=== PATIENT | female | born 1960 | race Caucasian/White ===

== ENCOUNTER → 2017-02-22 | Day surgery (SDC) | payer BC, OTHER ==
[~2017-02-22] MED LIST: LIDOCAINE 1% PF 2 ML VIAL. ID; MIDAZOLAM HCL/PF 2 MG/2 ML VIAL. IV; PROPOFOL 20 ML IV; fentaNYL PF VIAL 100 MCG/2 ML VIAL IV
[2017-02-22] MEDS: IV RINGERS,LACTATED 1000ML 1,000 ML IV (11:52)
== END | disposition home or self-care (01) ==
LOC: SURG 11:17
DX: K21.0 Gastro-esophageal reflux disease with esophagitis (principal); K29.50 Unspecified chronic gastritis without bleeding; M19.91 Primary osteoarthritis, unspecified site; Z98.890 Other specified postprocedural states; Z87.39 Personal history of other diseases of the musculoskeletal system and connective tissue; Z87.891 Personal history of nicotine dependence; Z88.2 Allergy status to sulfonamides
CPT/HCPCS: 43239; 88305; J2704

== ENCOUNTER → 2017-06-27 | Outpatient (CLI) | payer BC, OTHER ==
[2017-06-27] MEDS: GADOBUTROL 7.5 MMOL/7.5 ML VIAL IV (10:57)
== END | disposition home or self-care (01) ==
LOC: KCIC MRI 09:50
DX: K76.0 Fatty (change of) liver, not elsewhere classified (principal); N28.1 Cyst of kidney, acquired
CPT/HCPCS: 74183; A9585

== ENCOUNTER → 2017-08-03 | Day surgery (SDC) | payer BC, OTHER ==
[~2017-08-03] MED LIST changes: +DEXAMETHASONE SOD PHOS 20 MG/5 ML VIAL.; +ESMOLOL 100 MG/10 ML VIAL. IV; +GLYCOPYRROLATE 1 MG/5 ML VIAL.; +LIDOCAINE 1% PF 5 ML VIAL.; -MIDAZOLAM HCL/PF 2 MG/2 ML VIAL. IV; +MORPHINE SULFATE 4 MG/ML DISP.SYRIN. IV; +NEOSTIGMINE METHYLSULFATE 5 MG/5 ML SYRINGE.; +ONDANSETRON PF 4 MG/2 ML VIAL.; +ONDANSETRON PF 4 MG/2 ML VIAL. IV; +PROCHLORPERAZINE 10 MG/2 ML VIAL. IV; +ROCURONIUM 50 MG/5 ML VIAL.; +SEVOFLURANE 61 TO 120 MINUTES. IH; +SURGICEL HEMOSTAT 4X8 EACH.; +ceFAZolin 2GM PREMIX 2 GM/50 ML BAG IV; +fentaNYL PF VIAL 250 MCG/5 ML VIAL; +oxyCODONE/APAP 5/325 1 TAB TABLET PO
[2017-08-03] MEDS: IV RINGERS,LACTATED 1000ML 1,000 ML IV (07:54)
[2017-08-03] MEDS: BUPIVACAINE-EPI 0.25%-1:200000 50 ML VIAL. (09:02)
[2017-08-03] MEDS: fentaNYL PF VIAL 100 MCG/2 ML VIAL IV (10:14)
[2017-08-03] MEDS: oxyCODONE/APAP 5/325 1 TAB TABLET PO (10:38)
== END | disposition home or self-care (01) ==
LOC: SURG 07:20
DX: K81.1 Chronic cholecystitis (principal); K76.0 Fatty (change of) liver, not elsewhere classified; K21.9 Gastro-esophageal reflux disease without esophagitis; Z79.899 Other long term (current) drug therapy; Z98.890 Other specified postprocedural states; Z87.891 Personal history of nicotine dependence; Z88.1 Allergy status to other antibiotic agents; Z88.8 Allergy status to other drugs, medicaments and biological substances; M19.90 Unspecified osteoarthritis, unspecified site; Z83.79 Family history of other diseases of the digestive system; Z82.49 Family history of ischemic heart disease and other diseases of the circulatory system
CPT/HCPCS: 47001; 88304; 88307; 88313; A7015; J0690; J1100; J2405; J2704; J2710; J3010; J3490; J7030; J7120

== ENCOUNTER → 2020-03-02 | Outpatient (CLI) | payer BC, OTHER ==
[2017-08-03 10:32] VITALS: BP 148/84
[~2020-03-02] MED LIST changes: -DEXAMETHASONE SOD PHOS 20 MG/5 ML VIAL.; -ESMOLOL 100 MG/10 ML VIAL. IV; +FAMO-63 PO; -GLYCOPYRROLATE 1 MG/5 ML VIAL.; +IOHEXOL 180 MG/ML 10 ML VIAL. ONE; -LIDOCAINE 1% PF 2 ML VIAL. ID; -LIDOCAINE 1% PF 5 ML VIAL.; +MAGN400C PO; -MORPHINE SULFATE 4 MG/ML DISP.SYRIN. IV; -NEOSTIGMINE METHYLSULFATE 5 MG/5 ML SYRINGE.; -ONDANSETRON PF 4 MG/2 ML VIAL.; -ONDANSETRON PF 4 MG/2 ML VIAL. IV; +OXYC1TAB15 PO; +PANT40TA77 PO; -PROCHLORPERAZINE 10 MG/2 ML VIAL. IV; -PROPOFOL 20 ML IV; -ROCURONIUM 50 MG/5 ML VIAL.; -SEVOFLURANE 61 TO 120 MINUTES. IH; -SURGICEL HEMOSTAT 4X8 EACH.; -ceFAZolin 2GM PREMIX 2 GM/50 ML BAG IV; -fentaNYL PF VIAL 100 MCG/2 ML VIAL IV; -fentaNYL PF VIAL 250 MCG/5 ML VIAL; +methylPREDNISolone ACETATE 40 MG/ML VIAL. ONE; +methylPREDNISolone ACETATE 80 MG/ML VIAL. ONE; -oxyCODONE/APAP 5/325 1 TAB TABLET PO
--- NOTE | 2020-03-02 12:37 | PDOC1 ---
INITIAL PAIN CONSULT DATE OF SERVICE: DOS: DATE: 03/02/20 TIME: 12:32 CHIEF COMPLAINT: Chief Complaint: Low back and bilateral lower extremity pain HISTORY OF PRESENT ILLNESS: 59-year-old female presents history of pain in the low back and bilateral lower extremities for about 3 years gradually increasing not result of any specific injury or accident that she is aware of but getting worse over time. Patient reports it is increasing across the low back slightly more on the left than the right but present bilaterally occasional radiation to the posterior gluteus posterior thighs as well. Patient reports changes during the day with activity worse with walking standing changing positions better with sitting or laying down generally does not awaken from sleep at night is not effective bowel bladder control does not affect her ability to walk significantly she is not use any assistive devices. Patient has had physical therapy in the past about 2 years ago which was helpful she is still doing the exercises from that but reports that swelling limited in its helpfulness. Patient reports he did have some epidural injections in 2019 at outside facility which were helpful after the third 1. Patient not been taking any prescription medications for the pain just some [id number] Advil occasionally which does help by about 20%. Patient had MRI scan lumbar spine dated January 27, 2020 showing at L5-S1 mild disc desiccation but no evidence of stenosis or disc herniation or neuroforaminal stenosis with only mild disc desiccation at L5-S1 no evidence of other level impingements. Patient rates her disability rating 0-10 10 being the worst, 9 on family home responsibilities and recreation as well as occupational activities to a social activity self-care and life support activities. Patient reports no loss of motor function but significant fatigability in the legs with walking standing. PAST MEDICAL HISTORY: PMH: Arthritis, gastroesophageal reflux, emphysema PREVIOUS SURGERIES: Past Surgical Hx: x2, tonsillectomy, cholecystectomy CURRENT MEDICATIONS: Current Meds: Active Scripts Medications Dose Route/Sig Max Daily Dose Days Date Category Pepcid (Famotidine) 20 Mg Tablet 20 Mg PO BID 03/02/20 Reported ALLERGIES; Allergies: Coded Allergies: Sulfa (Sulfonamide Antibiotics) (Verified Allergy, Intermediate, 08/03/17) sulfamethoxazole (Verified Allergy, Intermediate, 08/03/17) trimethoprim (Verified Allergy, Intermediate, 08/03/17) FAMILY HISTORY: Family Hx: No major medical problems or conditions that she is aware of SOCIAL HISTORY: Social Hx: Patient drinks 1 glass of alcohol daily quit smoking 8 years ago does not use any illegal illicit recreational drugs is lives with her spouse lives locally in [facility] REVIEW OF SYSTEMS: ROS: Positive for those items mentioned in history of present illness, all systems are reviewed, otherwise negative, is complete full and well-documented on patient's chart PHYSICAL EXAM: VS: Blood pressure is 148/89 pulse 94 respiration 16 temperature 90.7 F height is 5 feet 10 inches weight 145 pounds PE: PHYSICAL EXAMINATION: GENERAL: The patient is awake, alert, oriented, appropriate, very pleasant demeanor HEENT: Shows normocephalic, atraumatic. Extraocular movements are intact and symmetrical. Patient wearing eyeglasses. Oral cavity: Mucous membranes moist and pink. Dentition is intact. NECK: Shows anterior throat supple without palpable lymphadenopathy noted. Swallow reflex symmetrical. CHEST: Shows normal on inspection. Breath sounds are clear bilaterally no rales rhonchi or wheezes auscultated. HEART: Shows S1, S2 clear. No murmurs auscultated. ABDOMEN: Soft, nontender, nondistended, flat. No palpable organomegaly is noted. No rebound or guarding demonstrated. BACK: Shows spine grossly in the midline. Normal-appearing cervical lordotic curvature. There is slightly increased thoracic kyphosis, some minor flattening of the lumbar lordotic curvature. Lumbar paraspinous muscles show symmetrical on inspection, on palpation shows some moderate tenderness diffusely throughout the upper, middle and lower distribution of the paraspinous muscles bilaterally, but without specific trigger points, without radiation of pain. The patient has good rotational motion of the lumbar spine, both laterally as well as extension and flexion without significant difficulty. No tenderness over the spinous processes, sacrum or sacroiliac regions. EXTREMITIES: Lower extremities show deep tendon reflexes 2+ in the patellar and tendo calcaneus tendons. Motor exam is 4 on a scale of 5 with right dorsiflexion, extension, quadriceps and hamstring flexion and 4/5 on the left. Peripheral pulses are 1+ posterior tibial. No peripheral edema is noted bilaterally. Lower extremities are warm and dry to touch, equal in color and appearance. Straight leg raise noted to be negative bilaterally. Gaenslen's and Cy's maneuvers are negative as well. The patient is able to stand, stand on toes without significant difficulty balance walks with a normal-appear ing gait for short distance in the office today not using any assistive devices. SKIN: Shows warm and dry, good turgor. No edema. No sores, rashes or bruising throughout. IMPRESSION: Impression: 59-year-old female with approximate 3-year history of pain low back, and bilateral lower extremities MRI scan lumbar spine as noted Arthritis Plan: Options were discussed with the patient including conservative medical management physical therapies and interventional techniques. Patient elects interventional techniques. We discussed a lumbar epidural steroid injection using description as well as anatomical models to describe the procedure. Patient would like to proceed. Risks were discussed including but not limited to: Bleeding, infection, possibility of epidural hematoma and subsequent neurological compromise, dural puncture, headaches, spinal cord and/or nerve damage, side effects of steroid medication, and poor results regarding pain control. Patient understands wished to proceed. Patient will return to clinic in approximate 2 weeks for follow-up, was counseled as to return appointment activity level and side effects to be aware of. Procedure is lumbar epidural steroid injection under local anesthetic using sterile prep and drape at the L5-S1 level using C-arm fluoroscopic guidance in both AP and lateral views medications injected is 120 mg Depo-Medrol + 10 mL preservative-free normal saline and 2 mL contrast- condition at discharge is stable patient tolerated procedure well had no complications. JAMAL WIGGINS MD Mar 02, 2020 12:37
== END | disposition home or self-care (01) ==
LOC: PNCL 10:47
PROVIDERS: ATTEND Anesthesiology
DX: M54.5 Low back pain (principal); M79.605 Pain in left leg; M79.604 Pain in right leg; K21.9 Gastro-esophageal reflux disease without esophagitis; J43.9 Emphysema, unspecified; M19.90 Unspecified osteoarthritis, unspecified site; Z90.49 Acquired absence of other specified parts of digestive tract; Z98.890 Other specified postprocedural states; Z87.891 Personal history of nicotine dependence; Z79.899 Other long term (current) drug therapy; Z88.2 Allergy status to sulfonamides; Z88.8 Allergy status to other drugs, medicaments and biological substances
CPT/HCPCS: 62323; J1030; J1040; Q9965

== ENCOUNTER → 2020-03-16 | Outpatient (CLI) | payer BC, OTHER ==
[2017-08-03 10:32] VITALS: BP 148/84
[~2020-03-16] MED LIST changes: +PANT20TA2 PO
--- NOTE | 2020-03-16 12:18 | PDOC ---
Progress Note - Pain Clinic Date of Service: DOS: DATE: 03/16/20 TIME: 12:15 Diagnosis: Dx: Lumbar radiculopathy with lumbar degenerative disc disease History or Present Illness: HPI: 59-year-old female returns follow-up status post lumbar epidurals injection x1. Patient reports about 25% improvement overall in her low back and bilateral lower extremity pain, but pain returning now in the low back and legs with walking standing changing positions. Patient ports is worst in the back itself but also occasional radiation the posterior gluteus posterior lateral thighs posterior calves patient reports bending is the worst activity repetitive twisting as well patient ports generally is not awakening from sleep at night feels better with sitting or lying down worse with walking standing and bending. Patient reports no new motor or sensory deficits no new bowel bladder incontinence describes the pain as sharp and dull in the low back on and off in intensity with activity. Patient rates her pain is a 6 on scale 10 is worst least an average and is a 6 on a scale of 10 today. Physical Exam: VS: Blood pressure is 151/96 pulse is 99 respirations 16 temperature 90.4 F weight is 140 pounds PE: PHYSICAL EXAMINATION: GENERAL: The patient is awake, alert, oriented, appropriate, very pleasant demeanor HEENT: Shows normocephalic, atraumatic. Extraocular movements are intact and symmetrical. NECK: Shows anterior throat supple without palpable lymphadenopathy noted. Swallow reflex symmetrical. CHEST: Shows normal on inspection. Breath sounds are clear bilaterally. HEART: Shows S1, S2 clear. No murmurs auscultated. ABDOMEN: Soft, nontender, nondistended. No palpable organomegaly is noted. No rebound or guarding demonstrated. BACK: Shows spine grossly in the midline. Normal-appearing cervical lordotic curvature. There is slightly increased thoracic kyphosis, some minor flattening of the lumbar lordotic curvature. Lumbar paraspinous muscles show symmetrical on inspection, on palpation shows some moderate tenderness diffusely throughout the upper, middle and lower distribution of the paraspinous muscles, but without specific trigger points, without radiation of pain. The patient has good rotational motion of the lumbar spine, both laterally as well as extension and flexion without significant difficulty. No tenderness over the spinous processes, sacrum or sacroiliac regions. EXTREMITIES: Lower extremities show deep tendon reflexes 2+ in the patellar and tendo calcaneus tendons. Motor exam is 4 on a scale of 5 with right dorsiflexion, extension, quadriceps and hamstring flexion and 4/5 on the left. Peripheral pulses are 1+ posterior tibial. No peripheral edema is noted bilaterally. Lower extremities are warm and dry to touch, equal in color and appearance. SKIN: Shows warm and dry, good turgor. No edema. No sores, rashes or bruising throughout. Procedure: Procedure: Options discussed with the patient. Patient will chart reviews her current medication regimen updated current review of systems updated today as well. We will proceed with a second in a series lumbar epidural steroid injection today with fluoroscopic guidance. Risks were discussed including but not limited to: Bleeding, infection, possibility of epidural hematoma and subsequent neurological compromise, dural puncture, headaches, spinal cord and/or nerve damage, side effects of steroid medication, and poor results regarding pain control. Patient understands wished to proceed. Patient will return to clinic in approximate 2 weeks for follow-up, was counseled as return appointment activity level, and side effects to be aware of. Medication Injected: Med Injected: Procedure is lumbar epidural steroid injection under local anesthetic using sterile prep and drape at the L5-S1 level using C-arm fluoroscopic guidance in both AP and lateral views medications injected is 120 mg Depo-Medrol + 10 mL preservative-free normal saline and 2 mL contrast- condition at discharge is stable patient tolerated procedure well had no complications. Condition at Discharge: Condition at Discharge: Condition at discharge stable, patient tolerated seizure well and had no complications. JAMAL WIGGINS MD Mar 16, 2020 12:18
== END | disposition home or self-care (01) ==
LOC: PNCL 10:58
PROVIDERS: ATTEND Anesthesiology
DX: M51.16 Intervertebral disc disorders with radiculopathy, lumbar region (principal); K21.9 Gastro-esophageal reflux disease without esophagitis; M19.90 Unspecified osteoarthritis, unspecified site; Z87.891 Personal history of nicotine dependence; Z90.710 Acquired absence of both cervix and uterus; Z98.890 Other specified postprocedural states; Z79.899 Other long term (current) drug therapy; Z88.2 Allergy status to sulfonamides; Z88.1 Allergy status to other antibiotic agents; Z88.8 Allergy status to other drugs, medicaments and biological substances
CPT/HCPCS: 62323; J1030; J1040; Q9965

== ENCOUNTER → 2020-03-30 | Outpatient (CLI) | payer BC, OTHER ==
[2017-08-03 10:32] VITALS: BP 148/84
[~2020-03-30] MED LIST changes: +BUPIVACAINE MPF 0.25% 10 ML VIAL. ONE
--- NOTE | 2020-03-30 12:25 | PDOC ---
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 Patient reports about 25% improvement overall but still significant pain in the low back itself and not as much in the lower extremities at this time patient reports is worse with standing and walking changing position especially extension or flexion of the spine and movement and changing positions from sitting to standing to sitting and seated to standing as well. Patient reports pain is a 6 on scale 10 at all times worst least and average over the past week 6 today patient was aching and dull on and off in intensity better with laying down or sitting down generally is not awaken her from sleep at night. Patient reports no new motor or sensory deficits no new bowel or bladder problems or complaints of significant pain limited to the low back at this time. Physical Exam: VS: Blood pressure is 140/82 pulse 86 respiration 16 temperature 90.4 F weight is 139 pounds PE: PHYSICAL EXAMINATION: GENERAL: The patient is awake, alert, oriented, appropriate, very pleasant demeanor HEENT: Shows normocephalic, atraumatic. Extraocular movements are intact and symmetrical. Oral cavity: Mucous membranes moist and pink. NECK: Shows anterior throat supple without palpable lymphadenopathy noted. Sw allow reflex symmetrical. CHEST: Shows normal on inspection. Breath sounds are clear bilaterally, no rales rhonchi or wheezes. HEART: Shows S1, S2 clear. No murmurs auscultated. ABDOMEN: Soft, nontender, nondistended, flat. No palpable organomegaly is n oted. No rebound or guarding demonstrated. BACK: Shows spine grossly in the midline. Normal-appearing cervical lordotic curvature. There is slightly increased thoracic kyphosis, some minor flattening of the lumbar lordotic curvature. Lumbar paraspinous muscles show symmetrical on inspection, on palpation shows some moderate tenderness diffusely throughout the upper, middle and lower distribution of the paraspinous muscles, but without specific trigger points, without radiation of pain. The patient has good rotational motion of the lumbar spine, both laterally greater than 10 degrees right and left with some moderate tenderness but with extension and forward flexion shows significant tenderness at both these rotations at greater than 10 degrees extension forward flexion at 45 degrees with significant pain in both directions. No tenderness over the spinous processes, sacrum or sacroiliac regions. EXTREMITIES: Lower extremities show deep tendon reflexes 2+ in the patellar and tendo calcaneus tendons. Motor exam is 4 on a scale of 5 with right dorsiflexion, extension, quadriceps and hamstring flexion and 4/5 on the left. Peripheral pulses are 1+ posterior tibial. No peripheral edema is noted bilaterally. Lower extremities are warm and dry to touch, equal in color and appearance. SKIN: Shows warm and dry, good turgor. No edema. No sores, rashes or bruising throughout. Procedure: Procedure: Options were discussed with the patient. Patient chart reviews her current medication regimen updated current review of systems updated today as well. We will proceed with bilateral L4-5 and L5-S1 facet joint injections today with fluoroscopic guidance. Risks were discussed including but not limited to: Bleeding, infection, possibility of epidural hematoma and subsequent neurological compromise, dural puncture, headaches, spinal cord and/or nerve damage, side effects of steroid medication, and poor results regarding pain control. Patient understands wished to proceed. Patient will return to clinic in approximate 2 weeks for follow-up was counseled as to return appointment activity level and side effects to be aware of. Medication Injected: Med Injected: Under sterile prep and drape using C-arm fluoroscopic guidance AP and lateral and oblique views, bilateral L4-5 and L5-S1 facet joint injections were performed, medications injected: 120 mg Depo-Medrol +4 cc 0.25% bupivacaine +2 cc contrast. Condition at discharge stable patient tolerated the procedure well and no complications. Condition at Discharge: Condition at Discharge: Condition at discharge stable, patient tolerated procedure well had no complications. JAMAL WIGGINS MD Mar 30, 2020 12:25
== END | disposition home or self-care (01) ==
LOC: PNCL 10:25
PROVIDERS: ATTEND Anesthesiology
DX: M51.36 Other intervertebral disc degeneration, lumbar region (principal); M47.817 Spondylosis without myelopathy or radiculopathy, lumbosacral region; K21.9 Gastro-esophageal reflux disease without esophagitis; M19.90 Unspecified osteoarthritis, unspecified site; Z87.891 Personal history of nicotine dependence; Z79.899 Other long term (current) drug therapy; Z88.2 Allergy status to sulfonamides; Z88.1 Allergy status to other antibiotic agents; Z88.8 Allergy status to other drugs, medicaments and biological substances
CPT/HCPCS: 64493; 64494; J1030; J1040; J3490; Q9965; 64635; 64636